=== PATIENT | male | born 1960 | race Caucasian/White ===

== ENCOUNTER 2021-06-13 13:37 | Day surgery (SDC) | payer OTHER, SELFPAY ==
[2021-06-13] VITALS (7 sets, daily range): BP systolic 101–141; BP diastolic 67–88; PULSE 68–77; RESP 15–23; TEMP 36.6–36.8; O2SAT 95–98; BMI 23.0
--- NOTE | 2021-06-13 | PATH_ITS ---
[facility] Accession Number: [id number] . 01 Material submitted: . gastrointestinal site - STOMACH . 02 Diagnosis: Stomach, Biopsies: Gastric antral and body mucosa with minimal chronic inflammation. Negative for Helicobacter organisms by immunohistochemistry. Negative for intestinal metaplasia. Negative for dysplasia or malignancy. MRV 06/19/2021 1310 Local . 02 Electronically signed: . Cornel Chavarria MD, PhD, Pathologist NPI- [id number] . 01 Gross description: . STOMACH: Received in formalin are 2 fragment(s) of rose, soft tissue measuring 0.5 x 0.2 x 0.1 cm to 0.2 x 0.1 x 0.1 cm submitted entirely in 1 cassette(s) /[facility] 06/15/2021 1108 Local . 02 Microscopic: . An immunohistochemical stain is performed to evaluate for Helicobacter organisms and is negative. The control stain showed appropriate reactivity. . * This test was developed and its performance characteristics determined by [facility]. It has not been cleared or approved by the U.S. Food and Drug Administration. The FDA has determined that such clearance or approval is not necessary. This test is used for clinical purposes. It should not be regarded as investigational or for research. . . . 02 Pathologist provided ICD-10: K29.70 . 02 CPT . 663417, [id number] Specimen Comment: A courtesy copy of this report has been sent to [phone] Performed at: 01 [facility] Cytology [address] [place] [address], [place], [place] [id number] MD Donavon Heller MD Phone: [phone] Performed at: 02 [facility] [address] [facility] [address] [place], [place] [id number] MD Rina Núñez MD Phone: [phone]
[2021-06-13] MEDS: SODIUM CHLORIDE 0.9% 1,000 ML 125 ML IV (14:08)
--- NOTE | 2021-06-13 14:21 | PM.OP.EGD ---
Operative Date/Time/Diagnoses Date of procedure: 06/13/21 Pre-op diagnosis: See indication and findings Procedure & Clinicians Study performed: EGD Indications: GE reflux and dysphagia Surgeon: Romi Gale Procedure Notes Procedure in detail: After informed consent was obtained the patient was placed in left lateral decubitus position. The video upper scope was placed into the oropharynx with the patient's help swelled into the esophagus. The esophagus stomach and duodenum were carefully examined. On withdrawal retroflexed view the GE junction was performed. The scope was removed. The patient tolerated procedure well. Blood loss none Complications none Sedation mac Findings 1. At 38 cm there was a mild Schatzki's ring. This was not visible well looking distally but could easily seen on retroflexed view. Photographs were taken. It was elected to do a dilation using a 51 [address] and this went without complication. 2. Mild patchy gastric antral erythema biopsies taken to rule out Helicobacter 3. Normal duodenal bulb and sweep Patient is should stay on his PPI for the next 2 weeks and then discontinue it. He was able to before prior to the distal development of dysphagia. If he has recurrent dysphagia or reflux after stopping the medication he should call Dr. Goins
--- NOTE | 2021-06-14 12:54 | SUR.OPER ---
REVIEWED OPERATIVE CONSENT WITH PATIENT FOR EGD, SIGNED AND WITNESSED BY SURGEON, PATIENT..AND KRYSTIN RN. 06/14/21 IN CHART REVIEW CONSENT WAS ABSENT. LATE ENTRY .DAMARIS
== END 2021-06-13 15:33 | disposition home or self-care (01) ==
PROVIDERS: PCP Family Medicine; Referring Provider Internal Medicine Gastroenterology; Visit Provider Internal Medicine Gastroenterology
PROC: 0DJ08ZZ Inspection of Upper Intestinal Tract, Via Natural or Artificial Opening Endoscopic (ICD-10-PCS; CPT 43235; principal; 2021-06-13 15:00)
DX: K29.50 Unspecified chronic gastritis without bleeding (principal); K22.2 Esophageal obstruction; K21.9 Gastro-esophageal reflux disease without esophagitis; J45.909 Unspecified asthma, uncomplicated
CPT/HCPCS: 43248; 43239; J2704

== ENCOUNTER 2025-01-18 09:52 | Day surgery (SDC) | payer OTHER, SELFPAY ==
--- NOTE | 2025-01-18 | PATH_ITS ---
[facility] Accession Number: [id number] No. of containers..03 Tissue . 01 Material submitted: . PART A: duodenum - DUODENUM PART B: stomach - ANTRUM PART C: esophagus, E-G Junction - GE JUNCTION . 01 Diagnosis: A. DUODENUM, BIOPSY: Duodenal mucosa with no diagnostic abnormality. Negative for active inflammation, features of sprue, dysplasia, or malignancy. . B. GASTRIC ANTRUM, BIOPSY: Gastric antral mucosa with no diagnostic abnormality. No evidence of Helicobacter organisms on H/E stain. Negative for intestinal metaplasia. Negative for dysplasia or malignancy. . C. GASTROESOPHAGEAL JUNCTION, BIOPSY: Squamocolumnar junctional mucosa with mild chronic inflammation and reactive foveolar hyperplasia. Negative for specialized intestinal metaplasia, dysplasia, or malignancy. MRV 01/27/2025 1316 Local . 01 Electronically signed: . Cornel Chavarria MD, PhD, Pathologist NPI- [id number] . 01 Gross description: . A. Received in formalin with two identifiers and duodenum, is a single rose soft tissue fragment 0.4 cm in greatest dimension. Submitted entirely in cassette A1. B. Received in formalin with two identifiers and antrum, are two rose soft tissue fragments 0.3 to 0.5 cm in greatest dimension. Submitted entirely in cassette B1. C. Received in formalin with two identifiers and GE junction, are two rose soft tissue fragments 0.3 to 0.4 cm in greatest dimension. Submitted entirely in cassette C1. ([id number]) /[facility] 01/24/2025 2119 Local . 01 Pathologist provided ICD-10: K20.80, R13.10 . 01 CPT . 562751, 871215, 350441 Specimen Comment: A courtesy copy of this report has been sent to [phone] Performed at: [address] [facility] [address] [address] [address] [facility], [place], [place] [id number] MD Donavon Heller MD Phone: [phone]
[2025-01-18] MEDS: LACTATED RINGERS 1,000 ML 42 ML IV (10:04)
[2025-01-18 10:07] VITALS: BP 136/89; PULSE 70; RESP 20; TEMP 36.7; O2SAT 98
--- NOTE | 2025-01-18 10:52 | PM.PREOP ---
Pre-operative Note COVID-19 COVID-19 status: Not tested Interval Note History & Physical reviewed/Exam performed by Physician: Yes Changes to H&P: No ASA Class (for procedural sedation): II
[2025-01-18 11:09] VITALS: BP 118/74; PULSE 74; RESP 16; TEMP 36.3; O2SAT 96
[2025-01-18 11:10] VITALS: BP 115/77; PULSE 69; RESP 16; TEMP 36.3; O2SAT 96
--- NOTE | 2025-01-18 11:10 | PM.OP.EGD ---
Operative Date/Time/Diagnoses Date of procedure: 01/18/25 Time of procedure: 11:10 Pre-op diagnosis: Dysphagia Post-op diagnosis: same Procedure & Clinicians Study performed: Esophagogastroduodenoscopy Same procedure(s) as scheduled: Yes Surgeon: Arnoldo Fernandez Anesthesia Type: MAC +/- Procedure Notes Procedure in detail: Surgeon: Arnoldo Fernandez MD Anesthesia: Debbie Burleson CRNA A timeout was performed. A bite blocked was placed. The patient was positioned in the left lateral decubitus position. Anesthesia was administered. The endoscope was inserted through the bite block and passed into the esophagus. The scope passed easily through the esophagus. The scope was then advanced into the duodenum. The duodenal mucosa appeared normal. Random biopsies were taken from the duodenal mucosa with cold forceps. The scope was withdrawn into the duodenal bulb and no abnormalities were seen. The scope was withdrawn into the stomach. Random biopsies were taken from the antrum with cold forceps. The rest of the stomach was normal. The scope was retroflexed and a hiatal hernia was noted. The scope was withdrawn into the esophagus. The GE junction was marked at 35 cm and a hiatus at 41 cm for 6 cm hernia. There were some flexible blood in the proximal stomach. The scope was retroflexed again and some inflammation was noted near the GE junction and biopsies were taken with the cold forceps from the GE junction. The remainder of the esophagus was normal. The scope was withdrawn. The patient was awakened and brought to recovery. Sedation time: 7 minutes Findings: 6 cm hiatal hernia and inflammation at the GE junction Estimated Blood Loss: 8 Complications: none Impression: Hiatal hernia and some inflammation at GE junction Post-procedure Disposition: PACU
[2025-01-18 11:15] VITALS: BP 117/75; PULSE 70; RESP 16; TEMP 36.3; O2SAT 96
[2025-01-18 11:20] VITALS: BP 127/83; PULSE 80; RESP 16; TEMP 36.3; O2SAT 96
[2025-01-18 11:23] VITALS: BP 121/83; PULSE 74; RESP 16; TEMP 36.2; O2SAT 96
== END 2025-01-18 11:28 | disposition home or self-care (01) ==
PROVIDERS: PCP Family Medicine; Referring Provider Surgery; Visit Provider Surgery
PROC: 0DJ08ZZ Inspection of Upper Intestinal Tract, Via Natural or Artificial Opening Endoscopic (ICD-10-PCS; CPT 43239; principal; 2025-01-18 11:00)
DX: R13.10 Dysphagia, unspecified (principal); K44.9 Diaphragmatic hernia without obstruction or gangrene; K20.90 Esophagitis, unspecified without bleeding
CPT/HCPCS: 43239; J2704; J7120

== ENCOUNTER → 2025-02-16 10:28 | Outpatient (CLI) | payer OTHER, SELFPAY ==
--- NOTE | 2025-02-16 10:30 | DI.RAD.S_ITS ---
PROCEDURE: FL BARIUM SWALLOW INDICATIONS: Dysphagia COMPARISON: None. FINDINGS: Function: For the most part there is normal esophageal peristalsis however tertiary non propulsive contractions were noted in the mid and distal esophagus intermittently. No elicited gastroesophageal reflux. There is normal transit of a calibrated barium tablet through the esophagus into the stomach. Morphology: Air-contrast images demonstrate normal mucosal morphology. [id number] paraesophageal type hiatal hernia is noted throughout the exam. Stomach distends normally. Contrast flows into the proximal duodenum. Gastric mucosa grossly normal. IMPRESSION: Moderate to large hiatal hernia. Tertiary non propulsive contractions. Follow-up suggested. If symptoms persist or worsen, or there is high clinical suspicion of abdominal abnormality, CT could be performed. Dictated by: David Wells M.D. on 02/16/2025 at 12:18 Approved by: David Wells M.D. on 02/16/2025 at 12:24
== END ==
LOC: RAD 10:29
PROVIDERS: PCP Family Medicine; Referring Provider Surgery; Visit Provider Surgery
DX: K44.9 Diaphragmatic hernia without obstruction or gangrene (principal); R13.19 Other dysphagia
CPT/HCPCS: 74220